=== PATIENT | female | born 1935 | race Caucasian/White ===

== ENCOUNTER 2018-03-26 11:49 | Emergency (ER) | END 2018-03-26 15:54 | disposition home or self-care (01) ==

== ENCOUNTER 2018-07-10 23:52 | Inpatient (IN) | payer OTHER ==
[~2018-07-10] VITALS: Ht 152.4 cm; Wt 56.7 kg
[~2018-07-10 23:52] MED LIST: ASPI-716 PO; DIPH1TAB PO; LISI10TA2 PO
[2018-07-11] VITALS (11 sets, daily range): BP systolic 109–154; BP diastolic 61–81; PULSE 69–90; RESP 17–20; Ht 152.4 cm; Wt 56.7 kg
[2018-07-11] MEDS ORDERED: SODIUM CHLORIDE 0.9% 1L BAG IV* STA (00:06)
[2018-07-11] MEDS ORDERED: ACETAMINOPHEN 325 MG TAB PO STA (00:06)
[2018-07-11] MEDS ORDERED: AMIODARONE 200 ML IV SCH (02:00)
[2018-07-11] MEDS ORDERED: AMIODARONE 150MG/D5W BOLUS 100 ML IV ONE (02:00)
[2018-07-11] MEDS ORDERED: VANCOMYCIN 1 GM (PMX) 250 ML IVPB ONE (02:00)
[2018-07-11] MEDS ORDERED: LEVOFLOXACIN 750MG/D5W (PMX) 150 ML IVPB ONE (02:00)
[2018-07-11] MEDS: AMIODARONE 200 ML IV SCH ×2 (02:10→14:09)
--- NOTE | 2018-07-11 03:19 | ERD ---
ER Documentation Chief Complaint Chief Complaint p fall out of bed x1hr ago, BLE weakness+ pain, confusion. HPI This is an 83-year-old female brought in by family because she is been weak generally over the past few hours. Apparently she has been very lethargic as well. Patient does have history of dementia has been more confused than normal. She is also had a little bit of a temperature. No nausea no vomiting. She was in her normal state of health yesterday but woke today with feeling of chills. Patient herself is a relatively poor historian but family is at the bedside. No head trauma. No loss of consciousness. Patient has been directly observed during this entire time by the family. ROS All systems reviewed and are negative except as per history of present illness. Medications Home Meds Active Scripts Diphenoxylate HCl/Atropine (Lomotil 2.5-0.025 mg Tablet) 1 Each Tablet, 1 TAB PO QID PRN for DIARRHEA, #10 TAB Prov:NOLVIA FARIAS MD 03/26/18 Reported Medications Lisinopril* (Lisinopril*) 10 Mg Tablet, 10 MG PO DAILY, #30 TAB 03/26/18 Aspirin* (Ecotrin*) 81 Mg Tablet.dr, 81 MG PO DAILY, TAB 03/26/18 Allergies Allergies: Coded Allergies: Penicillins (Unverified Allergy, Unknown, 03/26/18) procaine (Unverified Allergy, Unknown, 03/26/18) PMhx/Soc History of Surgery: Yes (Cholecystectomy) Anesthesia Reaction: No Hx Neurological Disorder: No Hx Respiratory Disorders: No Hx Cardiac Disorders: Yes (HTN, High cholesterol) Hx Psychiatric Problems: No Hx Miscellaneous Medical Probl: No Hx Alcohol Use: No Hx Substance Use: No Hx Tobacco Use: No Smoking Status: Never smoker Physical Exam Vitals Vital Signs Date Temp Pulse Resp B/P (MAP) Pulse Ox O2 O2 Flow FiO2 Time Delivery Rate 07/11/18 102.4 117 22 152/90 95 00:04 (110) Physical Exam Const: No acute distress Head: Atraumatic Eyes: Normal Conjunctiva ENT: Normal External Ears, Nose and Mouth. Neck: Full range of motion. No meningismus. Resp: Clear to auscultation bilaterally Cardio: Regular rate and rhythm, no murmurs Abd: Soft, non tender, non distended. Normal bowel sounds Skin: No petechiae or rashes Back: No midline or flank tenderness Ext: No cyanosis, or edema Neur: Awake and alert Psych: Normal Mood and Affect Result Diagram: 07/11/180 07/11/1840 Results 24 hrs Laboratory Tests Test 07/11/18 00:40 07/11/18 00:41 White Blood Count 8.2 10^3/ul Red Blood Count 4.55 10^6/ul Hemoglobin 13.5 g/dl Hematocrit 41.6 % Mean Corpuscular Volume 91.4 fl Mean Corpuscular Hemoglobin 29.7 pg Mean Corpuscular Hemoglobin Concent 32.5 g/dl Red Cell Distribution Width 13.9 % Platelet Count 228 10^3/UL Mean Platelet Volume 9.5 fl Immature Granulocytes % 0.500 % Neutrophils % 83.3 % Lymphocytes % 7.2 % Monocytes % 8.3 % Eosinophils % 0.5 % Basophils % 0.2 % Nucleated Red Blood Cells % 0.0 /100WBC Immature Granulocytes # 0.040 10^3/ul Neutrophils # 6.8 10^3/ul Lymphocytes # 0.6 10^3/ul Monocytes # 0.7 10^3/ul Eosinophils # 0.0 10^3/ul Basophils # 0.0 10^3/ul Nucleated Red Blood Cells # 0.0 10^3/ul Prothrombin Time 14.5 Sec Prothrombin Time Ratio 1.1 INR International Normalized Ratio 1.12 Activated Partial Thromboplast Time 26.4 Sec Lactic Acid Level 2.1 mmol/L Urine Color YELLOW Urine Clarity CLOUDY Urine pH 6.0 Urine Specific [place] 1.014 Urine Ketones NEGATIVE mg/dL Urine Nitrite POSITIVE mg/dL Urine Bilirubin NEGATIVE mg/dL Urine Urobilinogen 1+ mg/dL Urine Leukocyte Esterase 3+ Patricio/ul Urine Microscopic RBC 124 /HPF Urine Microscopic WBC > 182 /HPF Urine Squamous Epithelial Cells FEW /HPF Urine Transitional Epithelial Cells FEW /HPF Urine Bacteria MANY /HPF Urine Mucus FEW /HPF Urine Hemoglobin 2+ mg/dL Urine Glucose NEGATIVE mg/dL Urine Total Protein 2+ mg/dl Sodium Level 138 mmol/L Potassium Level 3.5 mmol/L Chloride Level 104 mmol/L Carbon Dioxide Level 23 mmol/L Anion Gap 11 Blood Urea Nitrogen 12 mg/dl Creatinine 0.99 mg/dl Est Glomerular Filtrat Rate mL/min mL/min Glucose Level 182 mg/dl Calcium Level 9.0 mg/dl Total Bilirubin 0.4 mg/dl Direct Bilirubin 0.00 mg/dl Indirect Bilirubin 0.4 mg/dl Aspartate Amino Transf (AST/SGOT) 26 IU/L Alanine Aminotransferase (ALT/SGPT) 17 IU/L Alkaline Phosphatase 100 IU/L Troponin I 0.040 ng/ml Total Protein 8.1 g/dl Albumin 4.1 g/dl Globulin 4.00 g/dl Albumin/Globulin Ratio 1.02 Current Medications Medications Dose Sig/Rolf Start Time Status Last (Trade) Ordered Route PRN Stop Time Admin Dose Reason Admin Sodium 1,700 ml BOLUS OVER 2 07/11/18 DC 07/11/18 Chloride HOURS STAT 00:06 07/11/18 00:50 (NS) IV* 00:07 650 mg ONCE STAT 07/11/18 DC 07/11/18 Acetaminophen PO 00:06 07/11/18 00:50 (Tylenol 00:07 Tab) Vancomycin 250 ml @ ONCE ONCE 07/11/18 HCl 125 mls/hr IVPB 02:00 07/11/18 03:59 150 ml @ ONCE ONCE 07/11/18 Levofloxacin/ 100 mls/hr IVPB 02:00 07/11/18 Dextrose 03:29 Amiodarone 100 ml @ ONCE ONCE 07/11/18 DC 07/11/18 HCl 600 mls/hr IV 02:00 07/11/18 01:46 02:09 Amiodarone 200 ml @ Q6H IV 07/11/18 HCl 33.333 mls/ 02:00 07/11/18 hr 07:59 Amiodarone 200 ml @ Q12H IV 07/11/18 07/11/18 HCl 16.667 mls/ 02:00 02:10 hr Procedures/MDM EKG: Rate/Rhythm: [Normal Sinus Rhythm] QRS, ST, T-waves: [No changes consistent w/ acute ischemia] Impression: [No evidence of ischemia or arrhythmia] Chest X-ray 1V Interpreted by me: Soft Tissue: No acute ab normalities Bones: No acute abnormalities Mediastinum/Cardiac Silhouette/Lungs: [No acute abnormalities] Patient's infectious symptoms have not stabilized and the patient is at risk of rapid decompensation. The patient will be admitted for careful hydration, antibiotic therapy, and infectious source control. Severe Sepsis Assessment: Infectious Source: [pyleonephritis] End organ damage indicated by: [Lactate > 2.0 mmol/L Severe Sepsis Managment: Blood Cultures X 2 before broad spectrum antibiotics initiated within 3 hours of recognition. Sepsis recognized at 12:04 AM 30 ml/kg NS bolus Completed Initial Lactate: 2.4 Repeat Lactate pending Critical Care: Time: 45 minutes, independent of any separately billable procedural time Treatments/Evaluations: Emergent fluid management, while maintaining close respiratory support. Immediate broad spectrum antibiotic therapy. Simultaneous assessment for possible sources in order to direct therapy. Consideration for invasive and chemical support to prevent respiratory or cardiac collapse. Septic Shock Assessment (1 hour post 30 ml/kg fluid bolus): Hypotension (SBP < 90 or 40 mmHg drop, MAP < 65): [No] Lactic acid > 4.0 [No] Perfusion Reassessment for Septic Shock: T temp 98.6, pulse 88, respiratory rate 16, blood pressure is 116/84 Heart Exam: [Tachycardic] Lung Exam: [No Crackles] Capillary Refill: [Delayed] Peripheral Pulses: [Radially present] Skin: [Mottled, pale] Patient developed a run of ventricular tachycardia that was documented here in the emergency department. A repeat EKG was ordered. EKG: #2 Rate/Rhythm: Regular rhythm, tachycardic rate of 210 bpm QRS, ST, T-waves: [No changes consistent w/ acute ischemia] Impression: Ventricular tachycardia Patient was given amiodarone bolus and then started on a continuous amiodarone infusion heart rate stabilized here in the department Accepting Care Team: Current data and ongoing care discussed. Time: 1 AM Primary Provider: Dr. Acosta, on-call for [facility] Consulting: Deferred to inpatient team Outstanding Data: none Departure Diagnosis: Primary Impression: Sepsis Sepsis type: sepsis due to unspecified organism Qualified Codes: A41.9 - Sepsis, unspecified organism Additional Impressions: UTI (urinary tract infection) Urinary tract infection type: site unspecified Hematuria presence: without hematuria Qualified Codes: N39.0 - Urinary tract infection, site not specified Ventricular tachycardia Condition: Critical MATTI BARBOUR Jul 11, 2018 03:19
[2018-07-11] MEDS ORDERED: ONDANSETRON 4 MG INJ IV PRN (05:30)
[2018-07-11] MEDS: ACETAMINOPHEN 325 MG TAB PO PRN ×2 (05:58→14:12)
[2018-07-11] MEDS: SOD CHLORIDE 0.9% 1,000 ML IV SCH ×2 (05:59→18:50)
[2018-07-11] MEDS ORDERED: PIPER-TAZO 3.375 GM IV (PMX) 100 ML IVPB SCH (06:00)
[2018-07-11] MEDS: LEVOFLOXACIN 750MG/D5W (PMX) 150 ML IVPB SCH (08:32)
[2018-07-11] MEDS: ASPIRIN (EC) 81 MG TAB PO SCH (08:33)
--- NOTE | 2018-07-11 10:05 | HP ---
DATE OF ADMISSION: 07/11/2018 CHIEF COMPLAINT: Generalized weakness. HISTORY OF PRESENT ILLNESS: An 83-year-old female with hypertension, hyperlipidemia, was brought in by family members with complaint of generalized weakness for 1 several hours. Patient was noted to b e lethargic. She reported dysuria and subjective fevers. The patient denies any chest pain. No allen rtness of breath. No abdominal pain. No flank pain. No hematuria. While in the emergency room, patient developed ventricular tachycardia and started on amiodarone drip . She was found to have contaminated urine. The serum lactate was initially 2.1, but repeat lactate was normal. There was no leukocytosis. PAST MEDICAL HISTORY: 1. Hypertension. 2. Hyperlipidemia. MEDICATIONS PRIOR TO ADMISSION: 1. Lisinopril 10 mg daily. 2. Aspirin 81 mg daily. 3. Lomotil as needed. SOCIAL HISTORY: Patient lives at home. She denies tobacco or alcohol use. PHYSICAL EXAMINATION: GENERAL: Well-developed, well-nourished female who is in no apparent distress. She is alert and katya ented x3. VITAL SIGNS: Blood pressure is 109/61, pulse is 71, temperature 98, respirations 17. HEENT: Extraocular muscles intact. Pupils equal and reactive to light bilaterally. Sclerae are ani cteric. Oropharynx is clear and moist. NECK: Supple, no JVD, no carotid bruits. LUNGS: Clear to auscultation bilaterally. CARDIAC: Regular rate and rhythm. No murmurs or gallops. ABDOMEN: Soft, nontender, nondistended, normoactive bowel sounds. BACK: No CVA tenderness. EXTREMITIES: No clubbing, cyanosis, or edema. NEUROLOGICAL: Nonfocal. LABORATORY DATA: CBC is within normal limits. Basic metabolic panel is also within normal limits. Liver function tests are normal. Chest x-ray showed no acute abnormalities. ASSESSMENT: 1. An 83-year-old female with a UTI. Rule out urosepsis. 2. Ventricular tachycardia, on amiodarone drip. 3. Hypertension, well controlled. 4. Hyperlipidemia. PLAN: 1. Place in tele observation. Continue amiodarone drip. 2. IV Levaquin. 3. Cardiology consultation was requested. Dictated By: LORENA MIRAMONTES/LAYTON Conf#: [id number] DID#: [id number] CC: LORENA VILLEDA MD;*EndCC*
[2018-07-11] MEDS ORDERED: POTASSIUM CHLORIDE (SR) 20 MEQ TAB PO STA (15:43)
--- NOTE | 2018-07-11 15:49 | CONS ---
Assessment/Plan Assessment/Plan Hospital Course (Demo Recall) Sepsis likely secondary to UTI SVT Hypertension -Patient with SVT in the setting of sepsis. Patient on IV amiodarone drip. -We will order potassium and magnesium supplementation to ideally maintain potassium above 4.0 and magnesium above 2.0. -Check echocardiogram -Start beta-keri and titrate as heart rate and blood pressure permits -Ideally, do not use pro-rhythmic agents/antibiotics Consultation Date/Type/Reason Admit Date/Time Jul 11, 2018 at 02:16 Type of Consult Cardiology Reason for Consultation Tachycardia Date/Time of Note DATE: 07/11/18 TIME: 15:45 Hx of Present Illness This is an 83-year-old female with past medical history of hypertension who presents with altered mental status. Discussion with grandson who is an EMT, patient found the floor urinate on herself. She had a foul smell to her urine. She also was warm to touch. Patient was given orange juice became more awake patient brought to the emergency room. Patient admitted with sepsis likely secondary to UTI. On telemetry, patient with episodes of tachycardia for this reason cardiology consult was requested. She denies any current palpitations, shortness of breath, dizziness. She is feeling much better now. 12 point review of systems was performed with all pertinent positives and negatives mentioned above and all else is negative Past Medical History Medical History: hypertension Home Meds Active Scripts Diphenoxylate HCl/Atropine (Lomotil 2.5-0.025 mg Tablet) 1 Each Tablet, 1 TAB PO QID PRN for DIARRHEA, #10 TAB Prov:NOLVIA FARIAS MD 03/26/18 Reported Medications Lisinopril* (Lisinopril*) 10 Mg Tablet, 10 MG PO DAILY, #30 TAB 03/26/18 Aspirin* (Ecotrin*) 81 Mg Tablet.dr, 81 MG PO DAILY, TAB 03/26/18 Medications Current Medications Amiodarone HCl 200 ml @ 16.667 mls/ hr Q12H IV Last administered on 07/11/18at 14:09; Admin Dose 16.667 MLS/HR; Start 07/11/18 at 02:00 Aspirin (Halfprin) 81 mg DAILY PO Last administered on 07/11/18at 08:33; Admin Dose 81 MG; Start 07/11/18 at 09:00 Sodium Chloride 1,000 ml @ 75 mls/hr [id number] IV Last administered on 07/11/18at 05:59; Admin Dose 75 MLS/HR; Start 07/11/18 at 05:30 Ondansetron HCl (Zofran Inj) 4 mg Q4H PRN IV NAUSEA AND/OR VOMITING; Start 07/11/18 at 05:30 Acetaminophen (Tylenol Tab) 650 mg Q4H PRN PO MILD PAIN(1-3)OR ELEVATED TEMP Last administered on 07/11/18at 14:12; Admin Dose 650 MG; Start 07/11/18 at 05:30 Miscellaneous Information (* Miscellaneous Pharmacy Order) LEVAQUIN IV PHARM... ONCE XX ; Start 07/11/18 at 06:00 Levofloxacin/ Dextrose 150 ml @ 100 mls/hr Q24H IVPB Last administered on 07/11/18at 08:32; Admin Dose 100 MLS/HR; Start 07/11/18 at 06:30 Allergies: Coded Allergies: Penicillins (Unverified Allergy, Unknown, 03/26/18) procaine (Unverified Allergy, Unknown, 03/26/18) Family History Significant Family History: no pertinent family hx Social History Smoking Status: Never smoker Exam/Review of Systems Vital Signs Vitals Vital Signs Date Temp Pulse Resp B/P (MAP) Pulse Ox O2 O2 Flow FiO2 Time Delivery Rate 07/11/18 99.9 17 154/74 96 15:13 (100) 07/11/18 82 12:01 07/11/18 Room Air 03:30 Intake and Output 07/10/18 07/10/18 07/11/18 1414:59 22:59 06:59 IntakeIntake Total 424.98 ml BalanceBalance 424.98 ml Exam Constitutional: alert, oriented (No apparent distress, family at bedside) Head: normocephalic Respiratory: other (Coarse breath sounds bilaterally, no wheezing) Cardiovascular: regular rate and rhythm (S1-S2.) Gastrointestinal: soft, non-tender, bowel sounds Extremities: other (No significant edema) Labs Result Diagram: 07/11/18 0040 07/11/18 0041 Results 24hrs Laboratory Tests Test 07/11/18 00:40 07/11/18 00:41 07/11/18 03:09 07/11/18 04:41 White Blood Count 8.2 Red Blood Count 4.55 Hemoglobin 13.5 Hematocrit 41.6 Mean Corpuscular Volume 91.4 Mean Corpuscular 29.7 Hemoglobin Mean Corpuscular 32.5 Hemoglobin Concent Red Cell Distribution 13.9 Width Platelet Count 228 Mean Platelet Volume 9.5 Immature Granulocytes % 0.500 H Neutrophils % 83.3 H Lymphocytes % 7.2 L Monocytes % 8.3 Eosinophils % 0.5 Basophils % 0.2 Nucleated Red Blood 0.0 Cells % Immature Granulocytes # 0.040 H Neutrophils # 6.8 Lymphocytes # 0.6 L Monocytes # 0.7 Eosinophils # 0.0 Basophils # 0.0 Nucleated Red Blood 0.0 Cells # Prothrombin Time 14.5 Prothrombin Time Ratio 1.1 INR International 1.12 Normalized Ratio Activated 26.4 Partial Thromboplast Time Lactic Acid Level 2.1 *H 0.9 Urine Color YELLOW Urine Clarity CLOUDY A Urine pH 6.0 Urine Specific [place] 1.014 Urine Ketones NEGATIVE Urine Nitrite POSITIVE A Urine Bilirubin NEGATIVE Urine Urobilinogen 1+ H Urine Leukocyte Esterase 3+ H Urine Microscopic RBC 124 H Urine Microscopic WBC > 182 H Urine Squamous FEW Epithelial Cells Urine Transitional FEW A Epithelial Cells Urine Bacteria MANY A Urine Mucus FEW A Urine Hemoglobin 2+ H Urine Glucose NEGATIVE Urine Total Protein 2+ H Sodium Level 138 Potassium Level 3.5 Chloride Level 104 Carbon Dioxide Level 23 Anion Gap 11 Blood Urea Nitrogen 12 Creatinine 0.99 Est Glomerular Filtrat Rate mL/min Glucose Level 182 Calcium Level 9.0 Total Bilirubin 0.4 Direct Bilirubin 0.00 Indirect Bilirubin 0.4 Aspartate Amino 26 Transf (AST/SGOT) Alanine 17 Aminotransferase (ALT/SG PT) Alkaline Phosphatase 100 Troponin I 0.040 Total Protein 8.1 Albumin 4.1 Globulin 4.00 H Albumin/Globulin Ratio 1.02 Bedside Urine pH (LAB) 5.5 Bedside Urine Protein Trace H (LAB) Bedside Urine Glucose Negative (UA) Bedside Urine Ketones Trace H (LAB) Bedside Urine Blood 2+ H Bedside Urine Nitrite Positive H (LAB) Bedside Urine 3+ H Leukocyte Esterase (L Test 07/11/18 05:17 Lactic Acid Level 1.2 Imaging Imaging ECG with evidence of SVT 200 bpm, QRS 56 ms, diffuse ST abnormalities Repeat ECG with sinus tachycardia at 116 bpm with frequent PACs, QRS 70 ms, nonspecific ST abnormalities Medications Medications Current Medications Amiodarone HCl 200 ml @ 16.667 mls/ hr Q12H IV Last administered on 07/11/18 14:09; Admin Dose 16.667 MLS/HR; Start 07/11/18 at 02:00 Aspirin (Halfprin) 81 mg DAILY PO Last administered on 07/11/18 08:33; Admin Dose 81 MG; Start 07/11/18 at 09:00 Sodium Chloride 1,000 ml @ 75 mls/hr [id number] IV Last administered on 07/11/18 05:59; Admin Dose 75 MLS/HR; Start 07/11/18 at 05:30 Ondansetron HCl (Zofran Inj) 4 mg Q4H PRN IV NAUSEA AND/OR VOMITING; Start 07/11/18 at 05:30 Acetaminophen (Tylenol Tab) 650 mg Q4H PRN PO MILD PAIN(1-3)OR ELEVATED TEMP Last administered on 07/11/18 14:12; Admin Dose 650 MG; Start 07/11/18 at 05:30 Miscellaneous Information (* Miscellaneous Pharmacy Order) LEVAQUIN IV PHARM... ONCE XX ; Start 07/11/18 at 06:00 Levofloxacin/ Dextrose 150 ml @ 100 mls/hr Q24H IVPB Last administered on 07/11/18 08:32; Admin Dose 100 MLS/HR; Start 07/11/18 at 06:30 Tyler Madison DO Jul 11, 2018 15:49
[2018-07-11] MEDS ORDERED: MAGNESIUM SULFATE 2 GM/50 ML 50 ML IVPB ONE (16:00)
[2018-07-11] MEDS: METOPROLOL 25 MG TAB PO SCH ×2 (16:59→20:40)
--- NOTE | 2018-07-11 20:13 | RADRPT ---
Echocardiogram Report Patient Name: Honorio VILLAFANAnt ID: [id number] : 1935 (83y )Study Date: 07/11/2018 10:25:05 AM Gender: FAccession #: [id number] Tech: Adrian Diamond [facility] Location: [address] Ref.Physician: LORENA VILLEDA Height(Cm): BSA: Weight(Kg): Quality: AdequateAccount #: Procedures: Echocardiographic Report: Transthoracic echocardiogram with complete 2D, M-Mode, and doppler examination. Indications: VTACH. Measurements: 2D/M Mode Doppler Measurement Value Normal Range Measurement Value Normal Range LVIDd 2D 2.3 [ 3.8 - 5.2 ] cm AV Peak Scott 1.3 [ 100.0 - 170.0 ] cm/sec LVIDs 2D 1.6 [ 2.2 - 3.5 ] cm AV Peak PG 7.0 [ 2.0 - 9.0 ] mmHg LVPWd 2D 1.0 [ 0.6 - 0.9 ] cm LVOT Peak Scott 0.7 [ 70.0 - 110.0 ] cm/sec IVSd 2D 1.4 [ 0.6 - 0.9 ] cm LVOT Peak PG 2.0 [ 2.0 - 6.0 ] mmHg AoR Diam 2D 2.6 [ 2.3 - 3.1 ] cm MV E Peak Scott 1.0 [ 60.0 - 130.0 ] cm/sec EDV 2D 18.9 [ 46.0 - 106.0 ] ml MV A Peak Scott 0.3 [ 100.0 - 120.0 ] cm/sec ESV 2D 6.7 [ 14.0 - 42.0 ] ml MV E/A 3.7 [ 0.8 - 1.5 ] ratio EF 2D 64.5 [ 54.0 - 74.0 ] percent MV Decel Time 215 [ 104 - 258 ] msec LA Dimen 2D 3.9 [ 2.7 - 3.8 ] cm Lat E` Scott 0.1 [ 10.0 - 15.0 ] cm/sec Lateral E/E` 9.1 [ 1.0 - 2.0 ] ratio Med E` Scott 0.1 cm/sec MV E/A 3.7 [ 0.8 - 1.5 ] ratio TR Peak Scott 3.1 [ 100.0 - 280.0 ] cm/sec TR Peak PG 39.0 mmHg RVSP 47.0 [ 10.0 - 36.0 ] mmHg Findings: Left Ventricle: Normal left ventricular systolic function. Normal left ventricular cavity size. Sigmoid septum. Ejection fraction is visually estimated at 60 %. Tissue Doppler/Mitral Doppler indices are consistent with pseudonormalization with mildly elevated left atrial pressure (Stage II diastolic dysfunction). Right Ventricle: Normal right ventricular size. Normal right ventricular systolic function. Left Atrium: The left atrium is normal in size. Right Atrium: The right atrium is normal in size. Atrial Septum: Likely left to right shunt by color Doppler consistent with PFO vs. ASD. Mitral Valve: Mild mitral leaflet calcification. Mild mitral annular calcification. Mild to moderate mitral valve regurgitation. Aortic Valve: No hemodynamically significant aortic stenosis by doppler. Aortic cusps appear mildly calcified. Mild aortic valve regurgitation. Tricuspid Valve: Normal appearance of the tricuspid valve. Estimated peak PA systolic pressure 47 mmHg. There is mild tricuspid regurgitation. Pulmonic Valve: Pulmonic valve not well visualized. Pericardium: Normal pericardium with no significant pericardial effusion. Aorta: Normal aortic root. IVC: Normal size with poor respiratory collapse consistent with elevated right atrial pressure. Conclusions: Normal left ventricular systolic function. Normal left ventricular cavity size. Sigmoid septum. Ejection fraction is visually estimated at 60 %. Tissue Doppler/Mitral Doppler indices are consistent with pseudonormalization with mildly elevated left atrial pressure (Stage II diastolic dysfunction). Normal right ventricular size. Normal right ventricular systolic function. The left atrium is normal in size. The right atrium is normal in size. Likely left to right shunt by color Doppler consistent with PFO vs. ASD. Mild to moderate mitral valve regurgitation. No hemodynamically significant aortic stenosis by doppler. Mild aortic valve regurgitation. Estimated peak PA systolic pressure 47 mmHg. There is mild tricuspid regurgitation. Normal pericardium with no significant pericardial effusion. Electronically Signed By: Tyler Madison 2018-07-11 20:12:11 PST
[2018-07-11] MEDS ORDERED: ZOLPIDEM 5 MG TAB PO PRN (22:00)
[2018-07-12] VITALS: PULSE 91
[2018-07-12] MEDS ORDERED: AMIODARONE 900 MG in DEXTROSE 5% 482 ML IV SCH (02:00)
[2018-07-12 04:00] VITALS: PULSE 90
[2018-07-12 04:21] VITALS: BP 137/64; PULSE 88; RESP 17
[2018-07-12] MEDS: LEVOFLOXACIN 750MG/D5W (PMX) 150 ML IVPB SCH (05:55)
[2018-07-12] MEDS: SOD CHLORIDE 0.9% 1,000 ML IV SCH (05:56)
[2018-07-12] MEDS: METOPROLOL 25 MG TAB PO SCH (05:56)
[2018-07-12 07:27] VITALS: BP 146/70; PULSE 88; RESP 18
[2018-07-12 08:01] VITALS: PULSE 90
[2018-07-12] MEDS: ASPIRIN (EC) 81 MG TAB PO SCH (08:13)
[2018-07-12] MEDS ORDERED: LEVO500T10 PO (08:34)
[2018-07-12] MEDS ORDERED: METO-448 PO ×2 (08:34→08:42)
--- NOTE | 2018-07-12 08:35 | PDOCDIS ---
Discharge Instructions CONDITION [id number] Patient Condition: [id number] Good HOME CARE INSTRUCTIONS: [id number] Diet Instructions: [id number] FOLLOW UP/APPOINTMENTS Follow-up Plan pcp [address] Madison 1 week LORENA VILLEDA MD Jul 12, 2018 08:35
--- NOTE | 2018-07-12 13:09 | DS ---
DATE OF ADMISSION: 07/11/2018 DATE OF DISCHARGE: 07/12/2018 DISCHARGE DIAGNOSES: 1. Gram-negative capri urinary tract infection. 2. Supraventricular tachycardia, resolved. 3. Hypertension, well controlled. 4. Hyperlipidemia. PROCEDURES DURING HOSPITALIZATION: A 2D echo. HOSPITAL COURSE: An 83-year-old very pleasant female with history of hypertension and hyperlipidemia , was brought in by family members with complaints of generalized weakness x1 day. The patient repor kalyan having dysuria. She was diagnosed with UTI. The patient developed supraventricular tachycardia in the emergency room and initially started on amiodarone drip. She was evaluated by a research mechanic, Dr. Madison. A 2D echo showed normal ejection fraction with no valvular abnormalities. Lopressor wa s recommended for control of heart rate. Urine culture grew gram-negative capri. The patient had prev ious history of UTI, which was sensitive to Levaquin. SHE IS PENICILLIN ALLERGIC. The patient is in stable condition for discharge. She was asymptomatic at the time of discharge. PLAN: Discharge home. MEDICATIONS ON DISCHARGE: 1. Levaquin 500 mg p.o. daily x5 days. 2. Metoprolol 50 mg p.o. b.i.d. 3. Aspirin 81 mg p.o. daily. 4. Lomotil as needed. FOLLOWUP: 1. Follow up with PCP in 1 week. 2. Follow up with cardiology in 1 week. Dictated By: LORENA MIRAMONTES/LAYTON Conf#: [id number] DID#: [id number] CC: KEVIN MADISON DO;*End*
== END 2018-07-12 12:12 | disposition home or self-care (01) | DRG 690 ==
LOC: E/R 23:52 → 6WM 07-11 02:16
PROVIDERS: ADMIT Internal Medicine; ATTEND Internal Medicine
DX: N39.0 Urinary tract infection, site not specified (principal); I47.1 Supraventricular tachycardia; B96.20 Unspecified Escherichia coli [E. coli] as the cause of diseases classified elsewhere; I10 Essential (primary) hypertension; E78.5 Hyperlipidemia, unspecified; Z79.82 Long term (current) use of aspirin; Z90.49 Acquired absence of other specified parts of digestive tract
CPT/HCPCS: 36415; 71045; 80048; 80053; 81001; 81003; 83605; 83735; 84484; 85025; 85610; 85730; 87040; 87086; 93005; 93306; 96374; 96376; J0282; J1956; J3370; J3475; J7030; J7060

== ENCOUNTER 2018-07-15 18:02 | Inpatient (IN) | payer MEDICARE, OTHER ==
[~2018-07-15] VITALS: Ht 152.4 cm; Wt 57.5 kg
[~2018-07-15 18:02] MED LIST changes: +LEVO500T10 PO; -LISI10TA2 PO; +METO-448 PO
[2018-07-15] MEDS ORDERED: SOD CHLORIDE 0.9% 1,000 ML IV STA (18:35)
--- NOTE | 2018-07-15 18:39 | ERD ---
ER Documentation Chief Complaint Chief Complaint CHEST PAIN X 1 HOUR HPI 83-year-old woman presents with palpitations and substernal chest pain beginning this afternoon and lasting for about half an hour after walking up and down the stairs a few times. She was recently diagnosed with a urinary tract infection and admitted into this hospital during admission she was found to have SVT and she was started on levofloxacin therapy for her urinary tract infection. She states she continues to use Levaquin as prescribed but has not finished yet. She denies palpitations in the ED and states she used aspirin prior to arrival. She denies shortness of breath, no cough, no fevers or chills, no vomiting or diarrhea, no loss of consciousness. ROS All systems reviewed and are negative except as per history of present illness. Medications Home Meds Active Scripts Metoprolol Tartrate* (Lopressor*) 25 Mg Tab, 50 MG PO BID, #60 TAB Prov:LORENA VILLEDA MD 07/12/18 Reported Medications Aspirin* (Ecotrin*) 81 Mg Tablet.dr, 81 MG PO DAILY, TAB 03/26/18 Discontinued Reported Medications Lisinopril* (Lisinopril*) 10 Mg Tablet, 10 MG PO DAILY, #30 TAB 03/26/18 Discontinued Scripts Levofloxacin* (Levofloxacin*) 500 Mg Tablet, 500 MG PO DAILY for 7 Days, #7 TAB Prov:LORENA VILLEDA MD 07/12/18 Diphenoxylate HCl/Atropine (Lomotil 2.5-0.025 mg Tablet) 1 Each Tablet, 1 TAB PO QID PRN for DIARRHEA, #10 TAB Prov:NOLVIA FARIAS MD 03/26/18 Allergies Allergies: Coded Allergies: Penicillins (Unverified Allergy, Unknown, 07/15/18) procaine (Unverified Allergy, Unknown, 07/15/18) PMhx/Soc Recent urinary tract infection currently being treated with levofloxacin, history of SVT, hypertension, hyperlipidemia History of Surgery: Yes (CHOLECYSTECTOMY) Anesthesia Reaction: No Hx Neurological Disorder: No Hx Respiratory Disorders: No Hx Cardiac Disorders: Yes (HTN, HIGH CHOLESTEROL, irregular heartbeat) Hx Miscellaneous Medical Probl: Yes Hx Alcohol Use: No Hx Substance Use: No Hx Tobacco Use: No Smoking Status: Never smoker FmHx Family History: No diabetes Physical Exam Vitals Vital Signs Date Temp Pulse Resp B/P (MAP) Pulse Ox O2 O2 Flow FiO2 Time Delivery Rate 07/15/18 81 18 153/81 99 Room Air 19:26 (105) 07/15/18 98.4 121 22 175/102 99 18:03 (126) Physical Exam Const: No acute distress, afebrile Head: Atraumatic Eyes: Normal Conjunctiva ENT: Normal External Ears, Nose and Mouth. Neck: Full range of motion. No meningismus. Resp: Clear to auscultation bilaterally Cardio: Tachycardic and regular Abd: Soft, non tender, non distended. Normal bowel sounds Skin: No petechiae or rashes Back: No midline or flank tenderness Ext: No cyanosis, or edema Neur: Awake and alert Psych: Normal Mood and Affect Result Diagram: 07/15/18182907/15/181829 Results 24 hrs Laboratory Tests Test 07/15/18 18:30 07/15/18 19:40 White Blood Count 6.8 10^3/ul Red Blood Count 4.54 10^6/ul Hemoglobin 13.6 g/dl Hematocrit 42.4 % Mean Corpuscular Volume 93.4 fl Mean Corpuscular Hemoglobin 30.0 pg Mean Corpuscular Hemoglobin Concent 32.1 g/dl Red Cell Distribution Width 13.8 % Platelet Count 314 10^3/UL Mean Platelet Volume 9.3 fl Immature Granulocytes % 0.600 % Neutrophils % % Segmented Neutrophils % (Manual) 54 % Band Neutrophils % (Manual) 2 % Lymphocytes % % Lymphocytes % (Manual) 30 % Monocytes % % Monocytes % (Manual) 8 % Eosinophils % % Eosinophils % (Manual) 6 % Basophils % % Nucleated Red Blood Cells % 0.0 /100WBC Immature Granulocytes # 0.040 10^3/ul Neutrophils # 10^3/ul Neutrophils # (Manual) 3.7 10^3/ul Band Neutrophils # 0.1 10^3/ul Lymphocytes (Manual) 2.0 10^3/ul Lymphocytes # 10^3/ul Monocytes # 10^3/ul Monocytes # (Manual) 0.5 10^3/ul Eosinophils # 10^3/ul Basophils # 10^3/ul Nucleated Red Blood Cells # 10^3/ul Platelet Estimate NORMAL Prothrombin Time 12.5 Sec Prothrombin Time Ratio 1.0 INR International Normalized Ratio 0.92 Activated Partial Thromboplast Time 29.5 Sec Sodium Level 141 mmol/L Potassium Level 3.8 mmol/L Chloride Level 104 mmol/L Carbon Dioxide Level 26 mmol/L Anion Gap 11 Blood Urea Nitrogen 16 mg/dl Creatinine 0.98 mg/dl Est Glomerular Filtrat Rate mL/min mL/min Glucose Level 165 mg/dl Calcium Level 9.7 mg/dl Total Bilirubin 0.1 mg/dl Direct Bilirubin 0.00 mg/dl Indirect Bilirubin 0.1 mg/dl Aspartate Amino Transf (AST/SGOT) 26 IU/L Alanine Aminotransferase (ALT/SGPT) 28 IU/L Alkaline Phosphatase 94 IU/L Troponin I < 0.012 ng/ml B-Type Natriuretic Peptide 827 PG/ML Total Protein 8.0 g/dl Albumin 4.1 g/dl Globulin 3.90 g/dl Albumin/Globulin Ratio 1.05 Lipase 213 U/L Urine Color COLORLESS Urine Clarity CLEAR Urine pH 6.0 Urine Specific Thompson 1.003 Urine Ketones NEGATIVE mg/dL Urine Nitrite NEGATIVE mg/dL Urine Bilirubin NEGATIVE mg/dL Urine Urobilinogen NEGATIVE mg/dL Urine Leukocyte Esterase NEGATIVE Patricio/ul Urine Hemoglobin NEGATIVE mg/dL Urine Glucose NEGATIVE mg/dL Urine Total Protein NEGATIVE mg/dl Current Medications Medications Dose Sig/Rolf Start Time Status Last (Trade) Ordered Route PRN Stop Time Admin Dose Reason Admin Sodium 1,000 ml @ Q1H STAT 07/15/18 DC 07/15/18 Chloride 1,000 mls/hr IV 18:35 07/15/18 18:58 19:34 Magnesium 50 ml @ 25 ONCE ONCE 07/15/18 DC 07/15/18 Sulfate mls/hr IVPB 19:00 07/15/18 18:58 20:59 Procedures/MDM IV line was established patient was placed on commercial lending vice president rhythm strip revealed a narrow complex tachycardia at 100 bpm with upright P and T waves. Patient was afebrile EKG performed, read by me revealed a normal sinus rhythm at 95 bpm, normal axis, narrow QRS complex, no concerning ST elevations or depressions noted, QT interval normal I administered 1 L normal saline IV and magnesium 2 g IV x1 CBC and electrolytes are normal, liver function tests were normal, troponin was negative. Urinalysis was negative for infection. Patient already used aspirin prior to arrival and is without complaints of chest pain at this time although while on commercial lending vice president in the emergency department she did have a run of ventricular tachycardia and felt palpitations. Patient will be admitted to telemetry setting for continued medical management and cardiology consultation. I spoke to Dr. Hernandez who agreed to consult the patient and recommended admission to telemetry setting Patient admitted to her hospital directed physician Departure Diagnosis: Primary Impression: Chest pain Chest pain type: unspecified Qualified Codes: R07.9 - Chest pain, unspecified Additional Impressions: Ventricular tachycardia Palpitations Condition: AIDAN Dominguez MD Jul 15, 2018 18:39
[2018-07-15] MEDS ORDERED: MAGNESIUM SULFATE 2 GM/50 ML 50 ML IVPB ONE (19:00)
[2018-07-15 22:12] VITALS: PULSE 79
[2018-07-15 22:27] VITALS: Ht 152.4 cm; Wt 57.5 kg
[2018-07-15 22:32] VITALS: BP 164/92; PULSE 76; RESP 18
[2018-07-15] MEDS: METOPROLOL 100 MG TAB PO SCH (23:00)
[2018-07-15] MEDS ORDERED: CEFTRIAXONE 1 GM/50 ML (PMX) 50 ML IVPB SCH (23:00)
[2018-07-15] MEDS ORDERED: ONDANSETRON 4 MG INJ IV PRN (23:00)
[2018-07-15] MEDS ORDERED: ACETAMINOPHEN 325 MG TAB PO PRN (23:00)
[2018-07-16] VITALS: BP_SYST 145; BP_SYST 177; BP_DIAS 70; BP_DIAS 79; PULSE 70; PULSE 77; RESP 19
[2018-07-16 04:00] VITALS: BP 128/66; PULSE 68; PULSE 70; RESP 18
[2018-07-16 08:00] VITALS: PULSE 66
[2018-07-16] MEDS ORDERED: AMLODIPINE 5 MG TAB PO SCH (09:00)
[2018-07-16] MEDS ORDERED: ASPIRIN (EC) 81 MG TAB PO SCH (09:00)
--- NOTE | 2018-07-16 09:21 | QN ---
Documentation Comment H&P dict a/p 1. cards: palpitations, possible v tach vs aberrently conducted supraventricular rhythm, await cards eval, increase metop ?SAMIR Garcia MD Jul 16, 2018 09:21
[2018-07-16] MEDS: METOPROLOL 100 MG TAB PO SCH (09:31)
[2018-07-16] MEDS ORDERED: ATENOLOL 25 MG TAB PO SCH (10:00)
[2018-07-16 11:45] VITALS: BP 147/72; PULSE 62; RESP 19
[2018-07-16 12:00] VITALS: PULSE 59
--- NOTE | 2018-07-16 13:19 | CONS ---
Assessment/Plan Assessment/Plan Hospital Course (Demo Recall) 83 yo with recent UTI found to have SVT, with recurrent palpitations, and appears to have paroxysmal SVT with aberrancy, improved with a higher dose of metoprolol. Impression: SVT with aberrancy Recommendations: Metoprolol tartrate 100 mg po bid Stable for discharge, son is an EMT and understands her condition If frequent recurrent palpitations then return to the ED, if short isolated runs , then less worrisome She has follow-up arranged with Dr. Tyler Madison for 07/25 If palpitations persist as outpatient, consider EP evaluation and possible SVT ablation Consultation Date/Type/Reason Admit Date/Time Jul 15, 2018 at 20:34 Date of Consultation: Jul 16, 2018 Type of Consult Cardiology Reason for Consultation palpitations Date/Time of Note DATE: 07/16/18 TIME: 13:11 Hx of Present Illness 83 yo admitted last week with UTI, discharged recently on metoprolol for SVT. Patient returned with further palpitations, noted to have both narrow complex and wide complex tachycardia at 200 bpm, in fact some runs of tachycardia had both narrow and wide complexes, all at the same rate. Workup last admission included an echo which demonstrated normal LV systolic function. Palpitations actually have been ongoing for some time. She is very active, walks a mile every day, has never had coronary disease. EKG's from all visits reviewed, none have a prolonged QT interval. At present she feels quite well. Yesterday she felt weak and attributed her symptoms to metoprolol; however she received her highest dose of it yet this am at 100 mg and tolerated it fine. She is eager to get a wedding this evening. Constitutional: no complaints Eyes: no complaints ENT: no complaints Respiratory: no complaints Cardiovascular: palpitations; No chest pain Gastrointestinal: no complaints Genitourinary: no complaints Musculoskeletal: no complaints Skin: no complaints Neurologic: no complaints Endocrine: no complaints Lymphatic: no complaints Psychological: no complaints Immunologic: no complaints Past Medical History Home Meds Active Scripts Metoprolol Tartrate* (Lopressor*) 25 Mg Tab, 50 MG PO BID, #60 TAB Prov:LORENA VILLEDA MD 07/12/18 Reported Medications Aspirin* (Ecotrin*) 81 Mg Tablet., 81 MG PO DAILY, TAB 03/26/18 Discontinued Reported Medications Lisinopril* (Lisinopril*) 10 Mg Tablet, 10 MG PO DAILY, #30 TAB 03/26/18 Discontinued Scripts Levofloxacin* (Levofloxacin*) 500 Mg Tablet, 500 MG PO DAILY for 7 Days, #7 TAB Prov:LORENA VILLEDA MD 07/12/18 Diphenoxylate HCl/Atropine (Lomotil 2.5-0.025 mg Tablet) 1 Each Tablet, 1 TAB PO QID PRN for DIARRHEA, #10 TAB Prov:NOLVIA FARIAS MD 03/26/18 Medications Current Medications Aspirin (Halfprin) 81 mg DAILY PO Last administered on 07/16/18 09:31; Admin Dose 81 MG; Start 07/16/18 at 09:00 Ceftriaxone Sodium 50 ml @ 100 mls/hr Q24H IVPB Last administered on 07/15/18at 23:39; Admin Dose 100 MLS/HR; Start 07/15/18 at 23:00 Acetaminophen (Tylenol Tab) 650 mg Q4H PRN PO MILD PAIN(1-3)OR ELEVATED TEMP; Start 07/15/18 at 23:00 Ondansetron HCl (Zofran Inj) 4 mg Q4H PRN IV NAUSEA AND/OR VOMITING; Start 07/15/18 at 23:00 Hydralazine HCl (Apresoline) 25 mg Q6H PRN PO sbp>160 Last administered on 07/16/18at 00:02; Admin Dose 25 MG; Start 07/15/18 at 23:00 Amlodipine Besylate (Norvasc) 5 mg BID PO Last administered on 07/16/18 09:31; Admin Dose 5 MG; Start 07/16/18 at 09:00 Allergies: Coded Allergies: Penicillins (Unverified Allergy, Unknown, 07/15/18) procaine (Unverified Allergy, Unknown, 07/15/18) Family History Significant Family History: no pertinent family hx Social History Smoking Status: Never smoker Exam/Review of Systems Vital Signs Vitals Vital Signs Date Temp Pulse Resp B/P (MAP) Pulse Ox O2 O2 Flow FiO2 Time Delivery Rate 07/16/18 Room Air 12:38 07/16/18 59 12:00 07/16/18 97.7 19 147/72 97 11:45 (97) Intake and Output 07/15/18 07/15/18 07/16/18 1515:00 23:00 07:00 IntakeIntake Total 300 ml BalanceBalance 300 ml Exam Constitutional: alert, oriented, well developed Psych: nl mood/affect Head: normocephalic, atraumatic Eyes: nl conjunctiva, EOMI, nl lids, nl sclera ENMT: nl external ears & nose, nl lips & teeth, nl nasal mucosa & septum Neck: supple; No jvd, No bruits Respiratory: clear to auscultation, normal air movement Cardiovascular: regular rate and rhythm, nl pulses; No murmurs/extra sounds Gastrointestinal: soft, nl liver, spleen, non-tender Musculoskeletal: nl extremities to inspection Extremities: normal pulses Neurological: nl mental status, nl speech Skin: nl turgor; No rash or lesions Labs Result Diagram: 07/15/18 1830 07/16/18 0702 Results 24hrs Laboratory Tests Test 07/15/18 18:30 07/15/18 19:40 07/16/18 07:02 White Blood Count 6.8 Red Blood Count 4.54 Hemoglobin 13.6 Hematocrit 42.4 Mean Corpuscular Volume 93.4 Mean Corpuscular Hemoglobin 30.0 Mean Corpuscular Hemoglobin Concent 32.1 Red Cell Distribution Width 13.8 Platelet Count 314 # Mean Platelet Volume 9.3 Immature Granulocytes % 0.600 H Neutrophils % Segmented Neutrophils % (Manual) 54 Band Neutrophils % (Manual) 2 Lymphocytes % Lymphocytes % (Manual) 30 Monocytes % Monocytes % (Manual) 8 Eosinophils % Eosinophils % (Manual) 6 Basophils % Nucleated Red Blood Cells % 0.0 Immature Granulocytes # 0.040 H Neutrophils # Neutrophils # (Manual) 3.7 Band Neutrophils # 0.1 Lymphocytes (Manual) 2.0 Lymphocytes # Monocytes # Monocytes # (Manual) 0.5 Eosinophils # Basophils # Nucleated Red Blood Cells # Platelet Estimate NORMAL Prothrombin Time 12.5 Prothrombin Time Ratio 1.0 INR International Normalized Ratio 0.92 Activated Partial Thromboplast Time 29.5 Sodium Level 141 143 Potassium Level 3.8 4.3 Chloride Level 104 109 Carbon Dioxide Level 26 25 Anion Gap 11 9 Blood Urea Nitrogen 16 13 Creatinine 0.98 0.84 Est Glomerular Filtrat Rate mL/min Glucose Level 165 86 # Calcium Level 9.7 9.1 Total Bilirubin 0.1 L Direct Bilirubin 0.00 Indirect Bilirubin 0.1 Aspartate Amino Transf (AST/SGOT) 26 Alanine Aminotransferase (ALT/SGPT) 28 Alkaline Phosphatase 94 Troponin I < 0.012 < 0.012 B-Type Natriuretic Peptide 827 H Total Protein 8.0 Albumin 4.1 Globulin 3.90 H Albumin/Globulin Ratio 1.05 Lipase 213 Urine Color COLORLESS Urine Clarity CLEAR Urine pH 6.0 Urine Specific [place] 1.003 Urine Ketones NEGATIVE Urine Nitrite NEGATIVE Urine Bilirubin NEGATIVE Urine Urobilinogen NEGATIVE Urine Leukocyte Esterase NEGATIVE Urine Hemoglobin NEGATIVE Urine Glucose NEGATIVE Urine Total Protein NEGATIVE Magnesium Level 2.6 H Thyroid Stimulating Hormone (TSH) 3.760 Imaging Imaging Baseline ekg this admission shows nsr at 95 bpm, with one pvc. Rhythm strips show both narrow and wide complex tachycardia, all at consistent heart rate, most likely an SVT with aberrancy. QTc on all EKG's on this and last admission are normal. Medications Medications Current Medications Aspirin (Halfprin) 81 mg DAILY PO Last administered on 07/16/18 09:31; Admin Dose 81 MG; Start 07/16/18 at 09:00 Ceftriaxone Sodium 50 ml @ 100 mls/hr Q24H IVPB Last administered on 07/15/18at 23:39; Admin Dose 100 MLS/HR; Start 07/15/18 at 23:00 Acetaminophen (Tylenol Tab) 650 mg Q4H PRN PO MILD PAIN(1-3)OR ELEVATED TEMP; Start 07/15/18 at 23:00 Ondansetron HCl (Zofran Inj) 4 mg Q4H PRN IV NAUSEA AND/OR VOMITING; Start 07/15/18 at 23:00 Hydralazine HCl (Apresoline) 25 mg Q6H PRN PO sbp>160 Last administered on 07/16/18at 00:02; Admin Dose 25 MG; Start 07/15/18 at 23:00 Amlodipine Besylate (Norvasc) 5 mg BID PO Last administered on 07/16/18 09:31; Admin Dose 5 MG; Start 07/16/18 at 09:00 MEENAKSHI NOBLE Jul 16, 2018 13:19
--- NOTE | 2018-07-16 14:45 | PDOCDIS ---
Discharge Instructions DIAGNOSIS Discharge Diagnosis 1. supraventricular tachycardia, with aberrent conduction It is very important to take the blood pressure medication (metoprolol) in order to minimize the recurrence of these symptoms if these happen frequently, I would recommend discussing it further with Dr Madison and to inquire if an EP (electrophysiology) study is appropriate CONDITION [id number] Patient Condition: [id number] Good HOME CARE INSTRUCTIONS: [id number] Diet Instructions: [id number] Regular ACTIVITY: [id number] Activity Restrictions: [id number] No Restrictions FOLLOW UP/APPOINTMENTS Follow-up Plan 1. Dr Tyler Madison as previously scheduled SAMIR SIDDIQUI MD Jul 16, 2018 14:45
[2018-07-16] MEDS ORDERED: METO-407 PO (14:49)
[2018-07-16] MEDS ORDERED: AMLO-145 PO (14:49)
--- NOTE | 2018-07-16 14:52 | DS ---
Date/Time of Note Date/Time of Note DATE: 07/16/18 TIME: 14:50 Discharge Summary Admission/Discharge Info Admit Date/Time Jul 15, 2018 at 20:34 Discharge Date/Time Discharge Diagnosis 1. supraventricular tachycardia, with aberrent conduction causing occassional w raisa complex tachycardias Patient Condition: Good Consults Aby Hernandez MD Hospital Course Patient presents with palpitations and is noted to have wide complerx tachyarrythmia, the strips are reviewed by cardiolgy and the diagnosis of supraventricular tachycardia with aberrent condictionius made. 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 Home Meds Active Scripts Metoprolol Tartrate* (Lopressor*) 100 Mg Tablet, 100 MG PO BID, #60 TAB Prov:SAMIR SIDDIQUI MD 07/16/18 Amlodipine Besylate* (Amlodipine Besylate*) 5 Mg Tablet, 5 MG PO DAILY, #30 TAB Prov:SAMIR SIDDIQUI MD 07/16/18 Metoprolol Tartrate* (Lopressor*) 25 Mg Tab, 50 MG PO BID, #60 TAB Prov:LORENA VILLEDA MD 07/12/18 Reported Medications Aspirin* (Ecotrin*) 81 Mg Tablet., 81 MG PO DAILY, TAB 03/26/18 Discontinued Reported Medications Lisinopril* (Lisinopril*) 10 Mg Tablet, 10 MG PO DAILY, #30 TAB 03/26/18 Discontinued Scripts Levofloxacin* (Levofloxacin*) 500 Mg Tablet, 500 MG PO DAILY for 7 Days, #7 TAB Prov:LORENA VILLEDA MD 07/12/18 Diphenoxylate HCl/Atropine (Lomotil 2.5-0.025 mg Tablet) 1 Each Tablet, 1 TAB PO QID PRN for DIARRHEA, #10 TAB Prov:NOLVIA FARIAS MD 03/26/18 Follow-up Plan 1. Dr Tyler Madison as previously scheduled Primary Care Provider Care Physician No Primary Time spent on discharge: > 30 minutes Pending Labs Laboratory Tests Test 07/15/18 18:30 07/15/18 19:40 07/16/18 07:02 White Blood Count 6.8 10^3/ul (4.8-10.8) Red Blood Count 4.54 10^6/ul (4.20-5.40) Hemoglobin 13.6 g/dl (12.0-16.0) Hematocrit 42.4 % (37.0-47.0) Mean Corpuscular 93.4 Volume fl (82.0-101.0) Mean Corpuscular 30.0 pg (29.0-33.0) Hemoglobin Mean Corpuscular 32.1 Hemoglobin Concent g/dl (32.0-37.0) Red Cell 13.8 % (11.5-14.5) Distribution Width Platelet Count 314 10^3/UL (140-415) Mean Platelet 9.3 fl (7.4-10.4) Volume Immature 0.600 Granulocytes % % (0.001-0.429) Neutrophils % % (39.0-77.0) Segmented 54 % (39-77) Neutrophils % (Manual) Band Neutrophils % 2 % (0-4) (Manual) Lymphocytes % % (15.0-51.0) Lymphocytes % 30 % (15-51) (Manual) Monocytes % % (0.0-11.0) Monocytes % 8 % (0-11) (Manual) Eosinophils % % (0.0-7.0) Eosinophils % 6 % (0-7) (Manual) Basophils % % (0.0-2.0) Nucleated Red Blood 0.0 Cells % /100WBC (0.0-0.0) Immature 0.040 Granulocytes # 10^3/ul (0.0-0.031) Neutrophils # 10^3/ul (1.6-7.5) Neutrophils # 3.7 (Manual) 10^3/ul (1.6-7.5) Band Neutrophils # 0.1 10^3/ul (0.0-0.6) Lymphocytes 2.0 (Manual) 10^3/ul (0.8-2.9) Lymphocytes # 10^3/ul (0.8-2.9) Monocytes # 10^3/ul (0.3-0.9) Monocytes # 0.5 (Manual) 10^3/ul (0.3-0.9) Eosinophils # 10^3/ul (0.0-0.5) Basophils # 10^3/ul (0.0-0.1) Nucleated Red Blood 10^3/ul (0.0-0.0) Cells # Platelet Estimate NORMAL Prothrombin Time 12.5 Sec (11.9-14.9) Prothrombin Time 1.0 Ratio INR International 0.92 Normalized Ratio Activated 29.5 Partial Thromboplas Sec (23.0-35.0) t Time Sodium Level 141 143 mmol/L (135-144) mmol/L (135-144) Potassium Level 3.8 4.3 mmol/L (3.5-5.1) mmol/L (3.5-5.1) Chloride Level 104 mmol/L (97-110) 109 mmol/L (97-110) Carbon Dioxide 26 mmol/L (21-31) 25 mmol/L (21-31) Level Anion Gap 11 (5-13) 9 (5-13) Blood Urea 16 mg/dl (7-20) 13 mg/dl (7-20) Nitrogen Creatinine 0.98 0.84 mg/dl (0.44-1.00) mg/dl (0.44-1.00) Est Glomerular mL/min (>60) mL/min (>60) Filtrat Rate mL/min Glucose Level 165 mg/dl (70-220) 86 mg/dl (70-220) Calcium Level 9.7 9.1 mg/dl (8.4-10.2) mg/dl (8.4-10.2) Total Bilirubin 0.1 mg/dl (0.2-1.3) Direct Bilirubin 0.00 mg/dl (0.00-0.20) Indirect Bilirubin 0.1 mg/dl (0-1.1) Aspartate Amino 26 IU/L (15-46) Transf (AST/SGOT) Alanine 28 IU/L (13-69) Aminotransferase (A LT/SGPT) Alkaline 94 IU/L (42-121) Phosphatase Troponin I < 0.012 < 0.012 ng/ml (0.000-0.120) ng/ml (0.000-0.120 ) B-Type Natriuretic 827 PG/ML (0-450) Peptide Total Protein 8.0 g/dl (6.1-8.1) Albumin 4.1 g/dl (3.3-4.9) Globulin 3.90 g/dl (1.3-3.2) Albumin/Globulin 1.05 Ratio Lipase 213 U/L (23-300) Urine Color COLORLESS (YELLOW) Urine Clarity CLEAR (CLEAR) Urine pH 6.0 (5.0-9.0) Urine Specific 1.003 (1.003-1.030 [place] ) Urine Ketones NEGATIVE mg/dL (NEGATIVE) Urine Nitrite NEGATIVE mg/dL (NEGATIVE) Urine Bilirubin NEGATIVE mg/dL (NEGATIVE) Urine Urobilinogen NEGATIVE mg/dL (NEGATIVE) Urine Leukocyte NEGATIVE Patricio/ul Esterase Urine Hemoglobin NEGATIVE mg/dL (NEGATIVE) Urine Glucose NEGATIVE mg/dL (NEGATIVE) Urine Total NEGATIVE Protein mg/dl (NEGATIVE) Magnesium Level 2.6 mg/dl (1.7-2.5) Thyroid Stimulating 3.760 Hormone (TSH) MIU/L (0.465-4.680 ) SAMIR SIDDIQUI MD Jul 16, 2018 14:52
--- NOTE | 2018-07-16 14:55 | HP ---
DATE OF ADMISSION: 07/15/2018 CHIEF COMPLAINT: Palpitations. HISTORY OF PRESENT ILLNESS: Ms. Zazueta presents to the emergency room at [facility] with palpitations. She was seen in this hospital approximately a week ago and was diagnosed with urinary tract infection. At that time she was noted to have an undisclosed arrhythmia which may be a suprave ntricular tachycardia versus ventricular tachycardia. She had an echocardiogram performed which was normal and preserved ejection fraction. She was discharged home with metoprolol; however, she did no t start this medication. She states that she has been doing well except she went out for a walk and then came home and began to feel palpitations. PAST MEDICAL HISTORY: Significant only for hypertension. MEDICATIONS: Outpatient include: 1. Metoprolol 50 mg b.i.d. 2. Aspirin 81 mg daily. 3. Levaquin. ALLERGIES: PENICILLIN. SOCIAL HISTORY: The patient lives at home in [place] independent of activities of daily living. Denies tobacco, alcohol, or illicit drug use. FAMILY HISTORY: Noncontributory. REVIEW OF SYSTEMS: Five systems reviewed and found not to be revealing. PHYSICAL EXAMINATION: VITAL SIGNS: Blood pressure 128/66, pulse rate 70, respirations 18, temperature is 98.2. GENERAL: Pleasant woman in no acute distress. Alert and oriented x3. HEENT: Normocephalic, atraumatic without evident scleral icterus, perioral cyanosis. Mucous membran es are moist. NECK: Soft and supple without masses. No evidence of jugular venous distention or carotid bruits. CHEST: Clear to auscultation and percussion bilaterally. HEART: Regular rate and rhythm, S1-S2, no added sounds. ABDOMEN: Soft, nontender, nondistended without palpable hepatosplenomegaly. EXTREMITIES: Without clubbing, cyanosis or edema. SKIN: Without rashes. NEUROLOGIC: Grossly intact. LABORATORY STUDIES: Reveal a hemoglobin of 13.6 g/dL, white count of 6800, platelets of 314,000. IN R is 1.0. Sodium 143, potassium 4.3, chloride 109, bicarbonate 25, BUN 13, creatinine 0.84, glucose 165. Liver function tests are unremarkable. Troponin is negative. Magnesium 2.6. UA is negative f or signs of infection. Chest x-ray does not reveal any signs of congestive heart failure. Echocardiogram performed on 07/11/2018 reveals a preserved ejection fraction of 60%, pulmonary artery hypertension at 47 mmHg, moderate mitral valve regurgitation, possible atrial septal defect. Review of EKG reveals sinus rhythm with occasional PAC with no ischemic ST segment or T-wave changes. Revi ew of the telemetry strips reveals 3 different episodes of regular wide complex tachycardia. I do not appreciate any preceding P waves. The longest of these strips shows a run of approximately 20 beats . ASSESSMENT AND PLAN: 1. Cardiac: The patient with palpitations of unclear etiology undisclosed rhythm at this time. Pos sibly ventricular tachycardia versus an aberrantly conducted supraventricular rhythm. Will obtain ca rdiology evaluation. Increase metoprolol at this time. Await cardiology consideration of amiodarone at that time. Continue blood pressure control. We will change Levaquin to Rocephin. Dictated By: SAMIR SIDDIQUI MD RER/NTS Conf#: [id number] DID#: [id number] CC: KEVIN CASTELLANO DO;*End*
== END 2018-07-16 15:10 | disposition home or self-care (01) | DRG 310 ==
LOC: E/R 18:02 → TEL 20:34
PROVIDERS: ADMIT Legal Medicine; ATTEND Legal Medicine
DX: I47.1 Supraventricular tachycardia (principal)
CPT/HCPCS: 36415; 71045; 80048; 80053; 81003; 83690; 83735; 83880; 84443; 84484; 85025; 85610; 85730; 93005; 96374; J0696; J3475; J7030